=== PATIENT | male | born 1990 | race Caucasian/White ===

== ENCOUNTER 2016-04-19 10:41 | Emergency (ER) | payer OTHER | END 2016-04-19 12:30 | disposition home or self-care (01) | LOC: ER 10:41 | DX: J98.01 Acute bronchospasm (principal); R06.02 Shortness of breath; R50.9 Fever, unspecified | CPT/HCPCS: 87400; 94664; 96372; 99283-25; J2930 ==

== ENCOUNTER 2016-04-25 17:09 | Emergency (ER) | payer OTHER | END 2016-04-25 20:15 | disposition home or self-care (01) | LOC: ER 17:09 | DX: J20.9 Acute bronchitis, unspecified (principal); F17.210 Nicotine dependence, cigarettes, uncomplicated | CPT/HCPCS: 71020; 94664; 96372; 99283-25; 99284 ==